=== PATIENT | male | born 1960 | race Two or more races ===

== ENCOUNTER 2020-06-23 11:35 | Emergency (ER) | payer OTHER ==
[~2020-06-23 11:35] MED LIST: PHENERGAN 25 MG25 M1 PO; ZOFRAN ODT 4 MG4 MG PO
[2020-06-23 13:26] LABS: HEMOGLOBIN 13.7 gm/dl (14.0-17.5); RED BLOOD COUNT 4.25 M/UL (4.20-5.50); WHITE BLOOD COUNT 5.1 K/UL (4.5-11.0)
[2020-06-23 13:50] LABS: BUN/CREATININE RATIO 9 (0-10)
[2020-06-23] MEDS ORDERED: PHENERGAN 12.12.5 M1 PO (16:24)
== END 2020-06-24 00:30 | disposition short-term general hospital (02) ==
LOC: ER1 11:35
PROVIDERS: Physician Assistant
DX: G40.409 Other generalized epilepsy and epileptic syndromes, not intractable, without status epilepticus (principal); R11.2 Nausea with vomiting, unspecified
CPT/HCPCS: 70450; 71045; 71250; 80053; 80307; 81001; 85025; 87086; 96365; 96375; 96376; 99285; J1953; J2060; J2405; J2550; J3411; J3475; J7030